=== PATIENT | female | born 1960 | race Caucasian/White ===

== ENCOUNTER 2023-11-19 08:23 | Day surgery (SDC) | payer OTHER, SELFPAY ==
[2023-11-19 09:19] VITALS: BP 121/73; PULSE 71; RESP 16; TEMP 36.3; O2SAT 100
[2023-11-19] MEDS: LACTATED RINGERS 1,000 ML 150 ML IV (09:22)
--- NOTE | 2023-11-19 09:22 | PM.HP.1 ---
History of Present Illness History of Present Illness Date Patient Seen: 11/19/23 Time Patient Seen: 09:23 Chief complaint: SDC Narrative: 63-year-old woman here for screening colonoscopy. Last colonoscopy 2012. No abdominal concerns today. No family history of colon cancer in first-degree relatives. [facility] Social History Smoking Status: Never smoker alcohol intake: current Meds Home Medications and Allergies Home Medications Medication Instructions Recorded Confirmed Type peg 3350-sod sulf,ezojn-mmq-ggy 1,000 ml PO DIRECTED #2,000 mL 10/25/23 Rx 178.7-7.3-0.5-1.12-0.9 gram oral soln (Suflave) Exam Vital Signs (past 8 hours): - 11/19/23 09:19 Temperature 97.4 F L Pulse Rate 71 Respiratory Rate 16 Blood Pressure 121/73 Pulse Oximetry 100 Oxygen Delivery Method Room Air Oxygen Delivery Method Room Air Narrative Exam Narrative: General adult woman alert oriented no acute distress Chest nonlabored respiration Extremities warm well perfused Assessment & Plan Assessment & Plan narrative: The patient requires colorectal screening and colonoscopy is recommended. Technical details were discussed. Risks, benefits, alternatives explained. Risks including but not limited to myocardial infarction, aspiration, bleeding, pain, missed lesion, incomplete examination, need for further radiographic studies, intestinal injury, and need for major abdominal surgery were discussed. All questions were answered to their satisfaction, and they are in agreement with this plan.
--- NOTE | 2023-11-19 09:36 | SUR.OPER ---
PATIENT STATES ALLERGY TO PENICILLIN
[2023-11-19 09:54] VITALS: BP 127/76; PULSE 74; RESP 17; TEMP 36.9; O2SAT 98
[2023-11-19 10:00] VITALS: BP 114/68; PULSE 74; RESP 17; O2SAT 98
[2023-11-19 10:05] VITALS: BP 120/71; PULSE 68; RESP 17; O2SAT 98
[2023-11-19 10:10] VITALS: BP 124/74; PULSE 75; RESP 14; O2SAT 98
[2023-11-19 10:34] VITALS: BP 128/82; PULSE 71; RESP 14; O2SAT 98
--- NOTE | 2023-11-26 11:44 | P.OP.COLON_ITS ---
Operative Date/Time/Diagnoses Date of procedure: 11/26/23 Time of procedure: 11:44 Pre-op diagnosis: Colorectal screening Procedure & Clinicians Study performed: Screening colonoscopy Same procedure as scheduled: Yes Indications: Colorectal screening Surgeon: Rajinder Diallo Procedure Notes Procedure in detail: The history and physical was performed/updated and the patient is ASA class is 2. The procedure was discussed in detail with the patient. Potential risks co mplications including infection, bleeding, missed diagnosis, perforation, need for surgery, and were explained. Their questions were answered and informed consent was obtained. Patient was brought to the procedure room and placed standard monitoring equipment. The patient's vital signs were monitored continuously throughout the entire procedure. Prior to starting time-out was performed. The patient was placed in the left lateral recumbent position. Procedural sedation was administered by anesthesia. Examination began with a thorough inspection of the perianal area there was no evidence of fissures, fistulae, external hemorrhoids or cutaneous malignancy. The colonoscopy scope was then placed into the anal canal and was advanced to the cecum, which was identified by the ileocecal valve, the appendiceal orifice and the confluence of the taenia. The scope was then slowly withdrawn examining colon thoroughly in all directions, irrigating it of any residual stool. The scope was retroflexed within the rectum The patient tolerated the procedure well. They will be discharged once criteria are met. The prep was of good/excellent quality. The withdrawl time was 7 minutes. FINDINGS * Unremarkable colonoscopy. Normal healthy colonic mucosa without polyps or inflammation. Specimen(s): none sent Impression: Normal colonoscopy Post-procedure Plan for aftercare: Repeat colonoscopy 10 years Disposition: same day surgery
== END 2023-11-19 10:57 | disposition home or self-care (01) ==
PROVIDERS: Referring Provider Surgery; Visit Provider Surgery
PROC: 0DJD8ZZ Inspection of Lower Intestinal Tract, Via Natural or Artificial Opening Endoscopic (ICD-10-PCS; CPT 45378; principal; 2023-11-19 09:15)
DX: Z12.11 Encounter for screening for malignant neoplasm of colon (principal)
CPT/HCPCS: 45378; J2704

== ENCOUNTER → 2024-07-03 11:48 | Outpatient (CLI) | payer OTHER, SELFPAY ==
--- NOTE | 2024-07-03 11:49 | DI.RAD.S_ITS ---
PROCEDURE: XR DEXA AXIAL SKELETON INDICATIONS: OSTEOPOROSIS SCREENING COMPARISON: None. FINDINGS: Lumbar Spine: Bone mineral density 0.752 g/cm2, T score -2.7. Left Femoral Neck: Bone mineral density 0.62 g/cm2, T score -2.1. Left Hip: Bone mineral density 0.724 g/cm2, T score -1.8. Fracture Risk Calculation (when applicable): 10-year fracture risk of a major osteoporotic fracture 9.9 percent and of a hip fracture 1.5 percent. (T score greater or equal to -1.0 to: NORMAL) (T score from -1.1 to -2.4: OSTEOPENIA) (T score less than or equal to -2.5: OSTEOPOROSIS) IMPRESSION: 1. Osteoporosis of the lumbar spine. 2. Osteopenia of the left hip and femoral neck. Follow-up guidelines as follows: Osteoporosis: Consider a repeat DEXA and Vertebral Fracture Assessment (VFA) exam in 2 years or sooner if medically necessary, to reassess this patient's status. Osteopenia: Consider a repeat DEXA in 2-3 years to reassess this patient's status, or if there is a new clinical indication. Normal: Consider a repeat DEXA in 5 years or sooner, or if there is a new clinical indication. All treatment decisions require clinical judgment and consideration of individual patient factors, including patient preferences, comorbidities, previous drug use, risk factors not captured in the FRAX model (e.g., frailty, falls, vitamin D deficiency, increased bone turnover, interval significant decline in bone density ) and possible under- or over-estimation of fracture risk by FRAX. In addition, the NOF Guide recommends that FDA-approved medical therapies be considered in postmenopausal women and men age >= 50 years with a: * Hip or vertebral (clinical or morphometric) fracture * T-score of <=-2.5 at the spine or hip * Ten-year fracture probability by FRAX of >= 3% for hip fracture or >=20% for major osteoporotic fracture. Dictated by: Ken Bowie M.D. on 07/03/2024 at 15:33 Approved by: Ken Bowie M.D. on 07/03/2024 at 15:34
== END ==
PROVIDERS: PCP Family Medicine
DX: Z13.820 Encounter for screening for osteoporosis (principal); M81.0 Age-related osteoporosis without current pathological fracture
CPT/HCPCS: 77080